=== PATIENT | female | born 1955 | race Caucasian/White ===

== ENCOUNTER 2020-01-06 15:32 | Outpatient (CLI) | payer MEDICARE, OTHER ==
--- NOTE | 2020-01-06 15:51 | RAD ---
Right toes 3 views HISTORY: Pain. FINDINGS: Metatarsals are included. There is moderate joint space narrowing, osteophytosis, and subch ondral sclerosis at the first metatarsophalangeal joint with slight cortical remodeling of the articular surface of the first metatarsal head. No acute fracture, dislocation, or aggressive osseous erosions are apparent. 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
== END 2020-01-06 15:33 | disposition home or self-care (01) ==
LOC: BICRAD 15:32
PROVIDERS: ATTEND Podiatrist
DX: M19.071 Primary osteoarthritis, right ankle and foot (principal)

== ENCOUNTER 2021-08-22 11:31 | Outpatient (CLI) | payer MEDICARE, OTHER | END 2021-08-22 11:32 | disposition home or self-care (01) | LOC: BICRAD 11:31 | PROVIDERS: ATTEND Podiatrist | DX: M19.071 Primary osteoarthritis, right ankle and foot (principal) ==